=== PATIENT | female | born 1980 | race Caucasian/White ===

== ENCOUNTER 2018-01-21 08:09 | Outpatient (CLI) | payer OTHER ==
[2012-09-21 00:44] VITALS: BP 145/78
--- NOTE | 2018-01-21 09:00 | Diagnostic Imaging Report ---
[place] [facility] [id number] [facility].[address] [address] Report Submission Date: Jan 21, 2018 8:33:17 AM CDT Patient Study Name: MANISH WOMACK Date: Jan 21, 2018 8:10:51 AM CDT Modality Type: DX Gender: F Description: LOWER EXTREMITY : 76 Institution: [facility] Physician: [place]IE [place] Right foot History: Fell down stairs Three views of the right foot were obtained which demonstrate the presence of an acute and complete fracture involving the 5th proximal phalanx. A fracture component does extend to involve the 5th MTP joint. Mineralization is normal. There is a large plantar calcaneal spur and small dorsal calcaneal spur. Impression: Acute, complete fracture involving proximal aspect of the 5th proximal phalanx with extension of the fracture to involve the MTP joint. Calcaneal spurring. Electronically signed on Jan 21, 2018 8:33:17 AM CDT by: Mirtha WARD
== END 2018-01-21 08:10 ==
LOC: RAD 08:09
PROVIDERS: ATTEND Family Medicine
DX: M79.671 Pain in right foot (principal); W19.XXXA Unspecified fall, initial encounter; Y92.9 Unspecified place or not applicable; Y93.9 Activity, unspecified; Y99.9 Unspecified external cause status
CPT/HCPCS: 73630

== ENCOUNTER 2018-02-18 16:11 | Outpatient (CLI) | payer OTHER ==
[2012-09-21 00:44] VITALS: BP 145/78
--- NOTE | 2018-02-18 18:52 | Diagnostic Imaging Report ---
[place] [facility] [address] [facility] [address] [address] Report Submission Date: Feb 18, 2018 5:36:31 PM CDT Patient Study Name: MANISH WOMACK Date: Feb 18, 2018 4:11:33 PM CDT Modality Type: DX Gender: F Description: LOWER EXTREMITY : 76 Institution: [facility] Physician: [place]IE [place] Examination: Plain film right foot History: 5TH PROXIMAL PHALANX FX FROM DECEMBER 2017 (Hx) Comparison exam: 21 January 2018 Findings: 3 views of the right foot demonstrates mild osteopenia. Again identified is a comminuted fracture involving the base of the proximal phalanx 5th digit. Limited crossing trabecula identified. Mild callus formation. Articular degenerative changes. Calcaneal spurs. Impression: Limited healing of the fracture proximal phalanx 5th digit. Electronically signed on Feb 18, 2018 5:36:31 PM CDT by: Salvatore WRAD
== END 2018-02-18 16:13 ==
LOC: RAD 16:11
PROVIDERS: ATTEND Family Medicine
DX: S92.511A Displaced fracture of proximal phalanx of right lesser toe(s), initial encounter for closed fracture (principal); X58.XXXA Exposure to other specified factors, initial encounter; Y92.9 Unspecified place or not applicable; Y93.9 Activity, unspecified; Y99.9 Unspecified external cause status
CPT/HCPCS: 73630